=== PATIENT | female | born 1935 | race Caucasian/White ===

== ENCOUNTER → 2016-09-06 | Outpatient (CLI) | payer MEDICARE | LOC: CT 09-05 13:30 | DX: R91.8 Other nonspecific abnormal finding of lung field (principal); R91.1 Solitary pulmonary nodule | CPT/HCPCS: 71250 ==

== ENCOUNTER 2020-09-02 02:14 | Inpatient (IN) | payer MEDICARE ==
[~2020-09-02] VITALS: Ht 152.4 cm; Wt 62.1 kg
[~2020-09-02 02:14] MED LIST: ANTIVERT 25MG T25 MG PO; ASPIRIN81 MG PO; ATORVASTATIN CA20 MG PO; COLACE 100MG C100 MG PO; COREG 3.125M3.125 MG PO; DIGOX125 MCG PO; ELAVIL 25 MG TA25 MG PO; ENTRESTO 49 MG1 EACH PO; FUROSEMIDE10 MG/1 M1 IVP; ISOSORBIDE MONO60 MG PO; K-DUR TAB 10 M10 MEQ PO; LASIX 40 MG TAB40 MG PO; LIPITOR TAB 2020 MG PO; MIRALAX17 GM PO; NITROSTAT 0.40.4 MG SL; PLAVIX 75 MG TA75 MG PO; PROTONIX 40 MG40 M1 PO; RANEXA500 MG PO; VENTOLIN/PROVE0.5 ML INH; ZOFRAN ODT 4 MG4 MG PO
[2020-09-02 02:41] LABS: HEMOGLOBIN 14.1 gm/dl (12.3-15.3); RED BLOOD COUNT 4.3 M/UL (4.00-5.10)
[2020-09-02 03:02] LABS: BUN/CREATININE RATIO 26 (0-10)
[2020-09-02] MEDS ORDERED: ZETIA10 MG PO (09:32)
[2020-09-02] MEDS ORDERED: CO Q-10100 MG PO (09:33)
[2020-09-02] MEDS ORDERED: MELATONIN10 M2 PO (09:34)
[2020-09-02] MEDS ORDERED: VITAMIN D310 MC1 PO (09:36)
[2020-09-02] MEDS ORDERED: VENTOLIN HFA 66.7 GM INH (09:37)
[2020-09-02] MEDS ORDERED: QVAR REDIHALE10.6 G1 INH (09:38)
== END 2020-09-04 13:45 | disposition home or self-care (01) | DRG 291 ==
LOC: ER1 02:14 → CDU 04:19 → PROG CARE 04:19
PROVIDERS: Family Medicine; ADMIT Internal Medicine
PROC: 5A09357 Assistance with Respiratory Ventilation, Less than 24 Consecutive Hours, Continuous Positive Airway Pressure (ICD-10-PCS; principal; 2020-09-02)
DX: I13.0 Hypertensive heart and chronic kidney disease with heart failure and stage 1 through stage 4 chronic kidney disease, or unspecified chronic kidney disease (principal); J96.00 Acute respiratory failure, unspecified whether with hypoxia or hypercapnia; I50.23 Acute on chronic systolic (congestive) heart failure; E03.9 Hypothyroidism, unspecified; E78.1 Pure hyperglyceridemia; N18.30 Chronic kidney disease, stage 3 unspecified; Z96.653 Presence of artificial knee joint, bilateral; I48.0 Paroxysmal atrial fibrillation; Z96.1 Presence of intraocular lens; I25.5 Ischemic cardiomyopathy; I25.10 Atherosclerotic heart disease of native coronary artery without angina pectoris; Z95.5 Presence of coronary angioplasty implant and graft; Z80.8 Family history of malignant neoplasm of other organs or systems; Z88.5 Allergy status to narcotic agent; Z88.2 Allergy status to sulfonamides; Z88.8 Allergy status to other drugs, medicaments and biological substances; Z88.1 Allergy status to other antibiotic agents; Z91.041 Radiographic dye allergy status; I25.2 Old myocardial infarction; Z95.1 Presence of aortocoronary bypass graft; Z90.710 Acquired absence of both cervix and uterus; Z90.49 Acquired absence of other specified parts of digestive tract; Z95.810 Presence of automatic (implantable) cardiac defibrillator; Z85.3 Personal history of malignant neoplasm of breast; Z98.42 Cataract extraction status, left eye; Z98.41 Cataract extraction status, right eye; Z83.3 Family history of diabetes mellitus; Z80.9 Family history of malignant neoplasm, unspecified; Z79.02 Long term (current) use of antithrombotics/antiplatelets; Z79.82 Long term (current) use of aspirin; Z79.899 Other long term (current) drug therapy
CPT/HCPCS: 36415; 36600; 51702; 71045; 80048; 80053; 82550; 82553; 82803; 83874; 83880; 84484; 85025; 85610; 93005; 94660; 94760; 96374; 99285; J1940

== ENCOUNTER 2020-09-12 03:10 | Inpatient (IN) | payer MEDICARE ==
[~2020-09-12] VITALS: Ht 152.4 cm; Wt 65.4 kg
[~2020-09-12 03:10] MED LIST changes: +CO Q-10100 MG PO; +MELATONIN10 M2 PO; +QVAR REDIHALE10.6 G1 INH; +VENTOLIN HFA 66.7 GM INH; +VITAMIN D310 MC1 PO; +ZETIA10 MG PO
[2020-09-12 04:00] LABS: HEMOGLOBIN 12.4 gm/dl (12.3-15.3); RED BLOOD COUNT 3.84 M/UL (4.00-5.10); WHITE BLOOD COUNT 13.4 K/UL (4.5-11.0)
[2020-09-13 04:30] LABS: HEMOGLOBIN 10.7 gm/dl (12.3-15.3)
[2020-09-13 04:32] LABS: RED BLOOD COUNT 3.35 M/UL (4.00-5.10); WHITE BLOOD COUNT 8.1 K/UL (4.5-11.0)
--- NOTE | 2020-09-14 08:00 | NUR ---
APPROX. 0625: CALLED RESPIRATORY TO PLACE PT ON BIPAP. PT'S O2 SATURATION WAS IN THE 90'S. HOWEVER, PT WAS SHORT OF BREATH AND REQUESTING TO BE PLACED ON HER BIPAP. APPROX. 0630: RESPIRATORY PLACED PT ON BIPAP @ 50%. PT'S O2 SAT WAS 93%. APPROX. 0633: PT'S O2 SATURATION WAS 98%. RESPIRATORY TITRATED PT'S BIPAP BACK DOWN TO 45%. APPROX. 0705: PT'S O2 SATURATION DROPPED TO 82% ON 45% BIPAP. CALLED RESPIRATORY TO COME AND TITRATE PT'S BIPAP AGAIN. CALLED TO NOTIFY HIM OF THE CHANGE IN PT'S CONDITION. PT'S RESPIRATIONS WERE INCREASED. PT'S LUNGS SOUNDED WET ALL OVER. PT HAD INSPIRATORY WHEEZING. I ASKED TO COME SEE THE PT. PT WAS IN DISTRESS. STATED TO GET A STAT CHEST X-RAY AND STATED THAT HE WOULD COME SEE HER. APPROX. 0709: RESPIRATORY TITRATED PT'S BIPAP TO 90%. APPROX. 0718: CAME TO SEE THE PT. APPROX. 0721: ORDERED A STAT ABG, AND STATED THAT HE WANTED THE PT TO GO TO PCU OR ICU, PREFERRABLY ICU. APPROX. 0722: NOTIFIED HOUSE THAT I NEEDED AN ICU BED FOR THE PT. NOTIFIED [employer] EXPERT THAT I NEEDED AN ICU BED FOR THE PT. APPROX. 0734: PT WAS GOING TO ROOM 2122. APPROX. 0739: TRIED TO CALL REPORT TO ICU, ROOM 2121. NO ANSWER. APPROX. 0744: CALLED REPORT TO JOHN IN ICU. PT WAS GOING TO ROOM 2122.
--- NOTE | 2020-09-14 11:47 | NUR ---
AFTER REPORT CALLED TO [facility] BY SERVICE LINE COORDINATOR NURSE PATIENTS MEDICATIONS AND CHART WERE COLLECTED AND PATIENT WAS TRANSPORTED TO ICU. ICU NURSE WAS INFORMED THAT PATIENT HAD MORNING MEDS DUE, AND THAT SCHEDULED LASIX WERE TO BE GIVEN IN ADDITION TO THE LASIX PATIENT HAD RECIEVED PRIOR.
== END 2020-09-14 10:37 | disposition expired | DRG 208 ==
LOC: ER1 03:10 → MED SURG 4 05:08 → CDU 05:08 → MED SURG 4 06:23 → CCU 09-14 08:38
PROVIDERS: Family Medicine; ADMIT Internal Medicine
PROC: 5A09357 Assistance with Respiratory Ventilation, Less than 24 Consecutive Hours, Continuous Positive Airway Pressure (ICD-10-PCS; principal; 2020-09-14)
PROC: 06HM33Z Insertion of Infusion Device into Right Femoral Vein, Percutaneous Approach (ICD-10-PCS; 2020-09-14)
PROC: 0BH17EZ Insertion of Endotracheal Airway into Trachea, Via Natural or Artificial Opening (ICD-10-PCS; 2020-09-14)
PROC: 5A1935Z Respiratory Ventilation, Less than 24 Consecutive Hours (ICD-10-PCS; 2020-09-14)
DX: J96.22 Acute and chronic respiratory failure with hypercapnia (principal); J81.0 Acute pulmonary edema; J18.9 Pneumonia, unspecified organism; I50.23 Acute on chronic systolic (congestive) heart failure; J44.0 Chronic obstructive pulmonary disease with (acute) lower respiratory infection; I13.0 Hypertensive heart and chronic kidney disease with heart failure and stage 1 through stage 4 chronic kidney disease, or unspecified chronic kidney disease; J44.1 Chronic obstructive pulmonary disease with (acute) exacerbation; J96.21 Acute and chronic respiratory failure with hypoxia; Z20.822 Contact with and (suspected) exposure to COVID-19; N18.30 Chronic kidney disease, stage 3 unspecified; E78.5 Hyperlipidemia, unspecified; I25.5 Ischemic cardiomyopathy; I48.0 Paroxysmal atrial fibrillation; E03.9 Hypothyroidism, unspecified; Z96.1 Presence of intraocular lens; I25.10 Atherosclerotic heart disease of native coronary artery without angina pectoris; Z95.1 Presence of aortocoronary bypass graft; Z85.3 Personal history of malignant neoplasm of breast; Z88.1 Allergy status to other antibiotic agents; I25.2 Old myocardial infarction; Z88.5 Allergy status to narcotic agent; Z88.2 Allergy status to sulfonamides; Z88.8 Allergy status to other drugs, medicaments and biological substances; Z80.8 Family history of malignant neoplasm of other organs or systems; Z95.810 Presence of automatic (implantable) cardiac defibrillator; Z90.49 Acquired absence of other specified parts of digestive tract; Z90.710 Acquired absence of both cervix and uterus; Z95.5 Presence of coronary angioplasty implant and graft; Z99.81 Dependence on supplemental oxygen; Z98.42 Cataract extraction status, left eye; Z98.41 Cataract extraction status, right eye; Z79.02 Long term (current) use of antithrombotics/antiplatelets; Z79.82 Long term (current) use of aspirin; Z79.899 Other long term (current) drug therapy
CPT/HCPCS: 0240U; 36415; 36600; 71045; 80048; 80053; 80162; 82550; 82553; 82803; 83874; 83880; 84484; 85025; 93005; 94640; 94660; 94760; 96374; 96375; 99285; C1751; J0171; J0282; J0330; J0461; J1205; J1644; J1940; J1956; J2704; J2920; J2930